=== PATIENT | female | born 1975 | race Caucasian/White ===

== ENCOUNTER → 2020-01-02 10:54 | Outpatient (CLI) | payer OTHER, SELFPAY ==
--- NOTE | ~2020-01-02 | XR_ITS ---
XR knee LT 2V DATE: 01/02/2020 11:16 INDICATION: Left knee pain TECHNIQUE: 3 views COMPARISON: None FINDINGS: There is narrowing of the medial compartment joint space. There is periarticular spurring a t the medial and lateral compartments. No fracture or dislocation or joint effusion. No radiopaque intra-articular loose body or chondrocalc inosis. No periosteal reaction or bone destruction. IMPRESSION: Moderate osteoarthritis Reviewed, dictated and finalized at location A. IMPRESSION: Moderate osteoarthritis
== END ==
PROVIDERS: PCP Family Medicine; Visit Provider Family Medicine
DX: M25.569 Pain in unspecified knee (principal); M17.12 Unilateral primary osteoarthritis, left knee
CPT/HCPCS: 73560

== ENCOUNTER 2020-03-03 09:41 | Outpatient (CLI) | payer OTHER, SELFPAY ==
--- NOTE | ~2020-03-03 | MR_ITS ---
EXAMINATION: MR knee LT wo con DATE: 03/03/2020 10:48 INDICATION: Left knee injury and pain. TECHNIQUE: Magnetic resonance imaging (MRI) of the left knee was performed without intravenous contra st. Sequences included axial PD-weighted FS FSE, coronal PD-weighted FSE and PD-weighted FS FSE, sagi ttal PD-weighted FSE, and sagittal T2-weighted FS FSE. COMPARISON: Left knee radiographs 02/20/2020 FINDINGS: Medial compartment: Medial meniscus is normal. There is cartilage surface irregularity of tibial condyle. There is deep p artial thickness cartilage loss of femoral condyle involving the central articular surface with mild subchondral edema-like signal intensity. Osteophytes are noted. Lateral compartment: Lateral meniscus is normal. There is deep partial thickness cartilage loss of femoral condyle involvi ng the central and posterior articular surface with mild subchondral edema-like marrow signal intensi ty. There is deep partial thickness cartilage loss of tibial condyle involving the medial and posteri or articular surface. Osteophytes are noted. Patellofemoral compartment: There is shallow partial-thickness cartilage loss of patellar median ridge. There is shallow partial- thickness cartilage loss of medial trochlea and deep partial thickness cartilage loss of lateral troc hlea with mild subchondral edema-like signal intensity. Ligaments and tendons: The anterior and posterior cruciate ligaments are normal. Medial collateral ligament and lateral manuel ateral ligament complex are intact. There is mild patellar tendinopathy. Fluid: There is a small knee joint effusion. There is mild prepatellar and superficial infrapatellar bursiti s. IMPRESSION: 1. Moderate tricompartmental chondrosis. 2. Small knee joint effusion. Reviewed, dictated and finalized at location A.
== END 2020-03-03 09:42 | disposition home or self-care (01) ==
LOC: ANHIMG 09:49
PROVIDERS: PCP Family Medicine; Visit Provider Orthopaedic Surgery
DX: M25.462 Effusion, left knee (principal)
CPT/HCPCS: 73721

== ENCOUNTER 2021-04-05 08:56 | Outpatient (CLI) | payer OTHER, SELFPAY ==
[2021-04-05 19:35] LABS: Phosphorus 2.8 mg/dL (2.5-4.5)
[2021-04-05 19:52] LABS: Vitamin D 25 Hydroxy 66.2 ng/mL
[2021-04-08 07:20] LABS: Triiodothyronine T3 Free 4.1 pg/mL (2.3-4.2)
[2021-04-08 11:43] LABS: T3 Reverse 8 ng/dL (8-25)
== END 2021-04-05 08:57 | disposition home or self-care (01) ==
PROVIDERS: PCP Family Medicine; Visit Provider Family Medicine
DX: R79.0 Abnormal level of blood mineral (principal); R79.89 Other specified abnormal findings of blood chemistry; Z82.49 Family history of ischemic heart disease and other diseases of the circulatory system; Z86.39 Personal history of other endocrine, nutritional and metabolic disease; G25.81 Restless legs syndrome
CPT/HCPCS: 36415; 82306; 84100; 84443; 84481; 84482

== ENCOUNTER 2021-04-28 07:27 | Outpatient (CLI) | payer OTHER, SELFPAY ==
--- NOTE | ~2021-04-28 | NM_ITS ---
EXAMINATION: NM stress w perf spect multi DATE: 04/28/2021 11:28 INDICATION: Heart disease TECHNIQUE: Rest images were obtained following intravenous administration of 10 mCi Tc99m tetrofosmin (Myoview). The patient performed an exercise activity. At peak exercise, 30 mCi Tc99m tetrofosmin (M yoview) was administered intravenously, and stress images were obtained. Data was reconstructed into short axis and horizontal and vertical long axis SPECT images. Gated SPECT images were also obtained. COMPARISON: None. FINDINGS: There is normal left ventricular perfusion without definite evidence of reversible or fixed perfusion abnormality to suggest ischemia or infarction. There is normal left ventricular chamber size, wall motion and ejection fraction. Left ventricular ejection fraction measures >70%. IMPRESSION: 1. Normal myocardial perfusion at rest and during stress. 2. Left ventricular ejection fraction measuring >70%. Reviewed, dictated and finalized at location A.
--- NOTE | 2021-04-28 07:58 | ECHOL_ITS ---
Patient Info Name: Heidi Lara Age: 45 years : 1975 Gender: Female Ht: 66 in Wt: 190 lbs BSA: 2.03 m2 HR: 76 bpm BP: 133 / 95 mmHg Exam Date: 04/28/2021 8:15 AM Exam Location: [facility] Patient Status: Outpatient Admit Date: 04/28/2021 Staff Ordering Physician: Gonsalo Viramontes DO Multiple Wire Sawyer: Gilson Galo RDCS, RT Attending Provider: Gonsalo Viramontes DO Referring Physician: Ana M SYED; Exam Type: CA echo limited Study Info Indications Z82.49 - Family history of ischemic heart disease and other diseases of the circulatory system Limited two-dimensional transthoracic echocardiogram is performed. Strain analysis performed. Summary 1. Limited study to assess LV function and strain analysis. 2. Left ventricular chamber dimension is normal. 3. Left ventricular systolic function is normal, estimated at 60-65%. 4. Global longitudinal strain is normal at -17.6%. Left Ventricle Limited study to assess LV function and strain analysis. Global longitudinal strain is normal at -17.6%. Left ventricular chamber dimension is normal. Left ventricular systolic function is normal, estimated at 60-65%. The left ventricular diastolic function is indeterminate as it is not assessed. EchoPAC Name Value Normal AutoEF LVCO_BiP_Q (Gkkr3RDM) 3.2 l/min LVEF_BiP_Q (Fivt1JIE) 59 % LVSV_BiP_Q (Uukf0ZMO) 38 ml LVVED_BiP_Q (Qidh6IKZ) 64 ml LVVES_BiP_Q (Jjyf3LMJ) 26 ml HR_4Ch_Q (Uekv2VHT) 85 bpm LVCO_4Ch_Q (Mcwl2LBA) 2.6 l/min LVEF_4Ch_Q (Txea2BMO) 55 % LVLd_4Ch_Q (Lbsv8NMX) 7.5 cm LVLs_4Ch_Q (Criz7IJN) 6.4 cm LVSV_4Ch_Q (Ppln3SWQ) 31 ml LVVED_4Ch_Q (Hxrk7UWG) 55 ml LVVES_4Ch_Q (Pkmk9LVJ) 25 ml HR_2Ch_Q (Tfex4IYH) 83 bpm LVCO_2Ch_Q (Rehc5MGO) 3.9 l/min LVEF_2Ch_Q (Ypow0JBX) 64 % LVLd_2Ch_Q (Sics1SDH) 7.6 cm LVLs_2Ch_Q (Cfhf7WVB) 6.2 cm LVSV_2Ch_Q (Cals6PTV) 47 ml LVVED_2Ch_Q (Dhba8FDW) 74 ml LVVES_2Ch_Q (Gmll7GCD) 27 ml DIXIE AA peak sys SL (AWMA) 18.1 % AAS peak sys SL (AWMA) 21.6 % AI peak sys SL (AWMA) 25.4 % AL peak sys SL (AWMA) 1.0 % AP peak sys SL (AWMA) 15.6 % peak sys SL (AWMA) 17.5 % AVC (AWMA) 375 ms BA peak sys SL (AWMA) 17.8 % BAS peak sys SL (AWMA) 11.5 % BI peak sys SL (AWMA) 15.9 % BL peak sys SL (AWMA) 24.7 % BP peak sys SL (AWMA) 18.9 % BS peak sys SL (AWMA)
--- NOTE | 2021-04-28 09:11 | EST_ITS ---
Patient Info Name: Heidi Lara Age: 45 years : 1975 Gender: Female Ht: 66 in Wt: 190 lbs BSA: 2.03 m2 Exam Date: 04/28/2021 10:18 AM Exam Location: [facility] Stress Patient Status: Outpatient Admit Date: 04/28/2021 Staff Ordering Physician: Gonsalo Viramontes DO Attending Provider: Gonsalo Viramontes DO Exercise Technologist: Gilson Galo RDCS, RT Exercise Physician: Golden Dong DO Exam Type: CA stress test treadmill w NM Study Info A nuclear stress test was performed. A treadmill exercise stress test was performed. Summary 1. 1. Negative Bryant exercise stress test for ischemic ST changes by ECG criteria. 2. 2. Good functional capacity, achieving 9 METs of workload. 3. 3. Appropriate HR response to exercise. 4. 4. Appropriate HR recovery at 1 minute post exercise. 5. 5. Nuclear scan to follow and will be reported separately. Please correlate with it. 6. 6. Patient informed of the above results. Protocol: Bryant Stress ECG Details Stage: REST Duration (min): 1 min : 12 sec Speed (mph): 0.0 Grade (%): 0 HR (bpm): 82 SBP (mmHg): 136 DBP (mmHg): 89 METS: --- Stage: REST Duration (min): 5 min : 41 sec Speed (mph): 0.0 Grade (%): 0 HR (bpm): 95 SBP (mmHg): 136 DBP (mmHg): 89 METS: --- Stage: STAGE 1 Duration (min): 1 min : 0 sec Speed (mph): 1.7 Grade (%): 10 HR (bpm): 109 SBP (mmHg): 136 DBP (mmHg): 89 METS: --- Stage: STAGE 1 Duration (min): 2 min : 0 sec Speed (mph): 1.7 Grade (%): 10 HR (bpm): 119 SBP (mmHg): 136 DBP (mmHg): 89 METS: --- Stage: STAGE 1 Duration (min): 3 min : 0 sec Speed (mph): 1.7 Grade (%): 10 HR (bpm): 124 SBP (mmHg): 162 DBP (mmHg): 84 METS: --- Stage: STAGE 2 Duration (min): 1 min : 0 sec Speed (mph): 2.5 Grade (%): 12 HR (bpm): 139 SBP (mmHg): 162 DBP (mmHg): 84 METS: --- Stage: STAGE 2 Duration (min): 2 min : 0 sec Speed (mph): 2.5 Grade (%): 12 HR (bpm): 145 SBP (mmHg): 177 DBP (mmHg): 80 METS: --- Stage: STAGE 2 Duration (min): 3 min : 0 sec Speed (mph): 2.5 Grade (%): 12 HR (bpm): 147 SBP (mmHg): 177 DBP (mmHg): 80 METS: --- Stage: STAGE 3 Duration (min): 1 min : 0 sec Speed (mph): 3.4 Grade (%): 14 HR (bpm): 157 SBP (mmHg): 153 DBP (mmHg): 75 METS: --- Stage: STAGE 3 Duration (min): 1 min : 30 sec Speed (mph): 3.4 Grade (%): 14 HR (bpm): 159 SBP (mmHg): 153 DBP (mmHg): 75 METS: --- Stage: RECOVERY Duration (min): 0 min : 29 sec Speed (mph): 0.0 Grade (%): 0 HR (bpm): 155 SBP (mmHg): 153 DBP (mmHg): 75 METS: --- Stage: RECOVERY Duration (min): 1 min : 29 sec Speed (mph): 0.0 Grade (%): 0 HR (bpm): 122 SBP (mmHg): 153 DBP (mmHg): 75 METS: --- Stage:
== END 2021-04-28 07:28 | disposition home or self-care (01) ==
LOC: ANHCARD 07:29
PROVIDERS: PCP Family Medicine; Visit Provider Family Medicine
DX: E78.00 Pure hypercholesterolemia, unspecified (principal); Z82.49 Family history of ischemic heart disease and other diseases of the circulatory system
CPT/HCPCS: 78452; 93017; 93308; A9502

== ENCOUNTER 2021-05-31 08:47 | Outpatient (CLI) | payer SELFPAY ==
[2021-05-31 18:41] LABS: Alanine Aminotransferase 13 U/L (4-35); Albumin Level 4.4 g/dL (3.5-5.1); Alkaline Phosphatase 59 U/L (38-126); Anion Gap 6 mmol/L (8-16); Aspartate Amino Transferase 19 U/L (14-36); Bilirubin,Total 0.6 mg/dL (0.2-1.3); Blood Urea Nitrogen 12 mg/dL (7-17); Calcium 9.9 mg/dL (8.4-10.2); Carbon Dioxide 25 mmol/L (22-30); Chloride 109 mmol/L (98-107); Cholesterol 224 mg/dL (0-200); Estimated Glomerular Filt Rate 60; Glucose 118 mg/dL (65-110); HDL Direct 47 mg/dL; Potassium 4.2 mmol/L (3.4-5.0); Sodium 140 mmol/L (137-145); Triglycerides 84 mg/dL (<150)
[2021-05-31 18:52] LABS: LDL Cholesterol Direct 149 mg/dL
== END 2021-05-31 08:48 | disposition home or self-care (01) ==
PROVIDERS: PCP Family Medicine; Visit Provider Family Medicine
DX: E78.5 Hyperlipidemia, unspecified (principal); E83.39 Other disorders of phosphorus metabolism; Z86.39 Personal history of other endocrine, nutritional and metabolic disease
CPT/HCPCS: 36415; 80053; 80061; 84443